=== PATIENT | male | born 1955 | race Caucasian/White ===

== ENCOUNTER 2021-07-02 05:18 | Day surgery (SDC) | payer BC ==
[2021-06-29 16:03] VITALS: BMI 26.9
[2021-07-02 14:19] VITALS: TEMP 97.8
[2021-07-02 14:56] VITALS: BP 142/69; PULSE 61
== END 2021-07-02 15:10 | disposition home or self-care (01) ==
LOC: JASU-ENDO 05:18
PROVIDERS: ATTEND Internal Medicine Gastroenterology
PROC: 0DBP8ZX Excision of Rectum, Via Natural or Artificial Opening Endoscopic, Diagnostic (ICD-10-PCS; principal; 2021-07-02 13:00)
DX: Z12.11 Encounter for screening for malignant neoplasm of colon (principal); K62.1 Rectal polyp; Z86.010 Personal history of colon polyps
CPT/HCPCS: 88305-TC; 88312-TC